=== PATIENT | male | born 1955 | race Caucasian/White ===

== ENCOUNTER → 2017-04-26 | Outpatient (CLI) | payer MEDICARE ==
--- NOTE | 2017-04-26 16:26 | RAD ---
Left hand, 3 views, 04/26/2017: History: Pain There is patchy bony demineralization. 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 There are moderate secondary degenerative change at the radiocarpal articulation with joint space narrowing, degenerative type cyst formation and chondrocalcinosis. Similar findings were present on the study of 12/03/2014. There are mild degenerative changes at scattered interphalangeal joints. No acute fracture or dislocation is identified. Moderate arterial calcifications are noted. IMPRESSION: 1. 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 2. 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
== END | disposition home or self-care (01) ==
LOC: DXRADRC 13:49
PROVIDERS: ATTEND Physician Assistant Medical
DX: S62.002K Unspecified fracture of navicular [scaphoid] bone of left wrist, subsequent encounter for fracture with nonunion (principal); M19.032 Primary osteoarthritis, left wrist; M11.232 Other chondrocalcinosis, left wrist; M25.832 Other specified joint disorders, left wrist; X58.XXXD Exposure to other specified factors, subsequent encounter
CPT/HCPCS: 73130